=== PATIENT | male | born 1955 | race Caucasian/White ===

== ENCOUNTER 2017-04-09 20:36 | Emergency (ER) | payer OTHER ==
[~2017-04-09] VITALS: Ht 177.8 cm; Wt 106.1 kg
[2017-04-09 22:11] LABS: ABSOLUTE NEUTROPHILS 8.1 thou/uL (1.4-8.2); BASOPHILS 1.2 % (0.0-2.0); EOSINOPHILS 2.8 % (0.0-3.0); HEMATOCRIT 46.4 % (42.0-52.0); HEMOGLOBIN 15.7 gm/dL (14.0-18.0); LYMPHOCYTES 17.3 % (24.0-44.0); MCH 30.5 pg (26.0-34.0); MCHC 33.8 g/dL (28.0-37.0); MCV 90.1 fL (80.0-100.0); MONOCYTES 7.2 % (1.0-8.0); PLATELET COUNT 224 thou/uL (150-400); POLYS 71.5 % (36.0-66.0); RBC 5.16 mil/uL (4.50-6.00); RDW 13.3 % (10.5-14.5); WBC 11.3 thou/uL (4.0-11.0)
[2017-04-09 22:20] LABS: CALCIUM 9.5 mg/dL (8.5-10.1); CREATININE 1.1 mg/dL (0.7-1.3); POTASSIUM 3.8 mmol/L (3.5-5.1)
[2017-04-09 22:26] LABS: ALBUMIN 3.5 g/dL (3.4-5.0); TOTAL BILIRUBIN 0.5 mg/dL (<0.1-1.0); TOTAL PROTEIN 7.1 g/dL (6.4-8.2)
[2017-04-09] MEDS ORDERED: AUGMENTIN 875-1 EACH PO (22:46)
[2017-04-09] MEDS ORDERED: DIFLUCAN150 MG PO (22:46)
[2017-04-09] MEDS ORDERED: LISINOPRIL20 MG PO (22:52)
== END 2017-04-09 23:05 | disposition home or self-care (01) ==
LOC: ER 20:36
PROVIDERS: Emergency Medicine
DX: L03.115 Cellulitis of right lower limb (principal); I10 Essential (primary) hypertension; E11.9 Type 2 diabetes mellitus without complications; Z91.14 Patient's other noncompliance with medication regimen; E78.00 Pure hypercholesterolemia, unspecified; F17.210 Nicotine dependence, cigarettes, uncomplicated

== ENCOUNTER 2019-04-04 16:56 | Emergency (ER) | payer BC, OTHER ==
[~2019-04-04] VITALS: Ht 175.3 cm; Wt 110.2 kg
[~2019-04-04 16:56] MED LIST: AUGMENTIN 875-1 EACH PO; DIFLUCAN150 MG PO; LISINOPRIL20 MG PO
[2019-04-04] MEDS ORDERED: FLONASE 0.05%50 MCG NARES (18:11)
[2019-04-04] MEDS ORDERED: NORCO 5-325 TA1 EAC1 PO (18:11)
[2019-04-04 18:25] VITALS: BP 159/90
== END 2019-04-04 18:25 | disposition home or self-care (01) ==
LOC: ER 16:56
DX: S22.42XA Multiple fractures of ribs, left side, initial encounter for closed fracture (principal); I10 Essential (primary) hypertension; E11.9 Type 2 diabetes mellitus without complications; E78.00 Pure hypercholesterolemia, unspecified; W00.0XXA Fall on same level due to ice and snow, initial encounter; Y92.89 Other specified places as the place of occurrence of the external cause; Y93.89 Activity, other specified; Y99.8 Other external cause status